=== PATIENT | male | born 1990 | race Caucasian/White ===

== ENCOUNTER 2017-12-02 22:17 | Emergency (ER) | payer SELFPAY ==
[2017-12-03] MEDS: LIDOCAINE 2%/EPI MPF (SDV) 20 ML VIAL INJ (01:49)
[2017-12-03] MEDS: HYDROCODONE/APAP (10/325) TAB PO (02:02)
== END 2017-12-03 05:19 | disposition home or self-care (01) ==
LOC: FTE 22:17
DX: S51.012A Laceration without foreign body of left elbow, initial encounter (principal); S52.002A Unspecified fracture of upper end of left ulna, initial encounter for closed fracture; R40.2412 Glasgow coma scale score 13-15, at arrival to emergency department; S60.410A Abrasion of right index finger, initial encounter; S60.413A Abrasion of left middle finger, initial encounter; S60.415A Abrasion of left ring finger, initial encounter; W18.39XA Other fall on same level, initial encounter; Y92.9 Unspecified place or not applicable
CPT/HCPCS: 12001; 73080-LT; 73130-LT; 99283-25